=== PATIENT | female | born 1975 | race Two or more races ===

== ENCOUNTER 2019-04-23 04:49 | Emergency (ER) | payer SELFPAY ==
[~2019-04-23] VITALS: Ht 157.5 cm; Wt 64.0 kg
[2019-04-23] MEDS ORDERED: HYDROCODONE/ACETAMINOPHEN 5/325MG TABLET PO ONE (05:30)
[2019-04-23] MEDS ORDERED: KETOROLAC 30MG/ML VIAL IM ONE (07:30)
[2019-04-23 08:04] VITALS: BP 115/78
== END 2019-04-23 08:04 | disposition home or self-care (01) ==
LOC: ER 04:49
DX: S52.502A Unspecified fracture of the lower end of left radius, initial encounter for closed fracture (principal); E11.9 Type 2 diabetes mellitus without complications; Z88.0 Allergy status to penicillin; Z90.710 Acquired absence of both cervix and uterus; W10.8XXA Fall (on) (from) other stairs and steps, initial encounter; Y93.89 Activity, other specified; Y92.018 Other place in single-family (private) house as the place of occurrence of the external cause
CPT/HCPCS: 29125; 73090; 73110; 73130; 96372; 99283; J1885